=== PATIENT | female | born 1965 | race Caucasian/White ===

== ENCOUNTER 2024-07-20 03:37 | Inpatient (IN) | payer MEDICARE, OTHER ==
[~2024-07-20] VITALS: Ht 167.6 cm; Wt 68.0 kg
[~2024-07-20 03:37] MED LIST: ACYC400T19 PO; CLINDAMYCIN; CODE60TA PO; DICY10CA13 PO; DOCU-141 PO; FISH OIL PO; FLUTICASONE 50MCG; FOLIC ACID PO; GABA600T PO; HYDR2TAB4 PO; LINA290C PO; LORA10TA7 PO; MAGN400T8 PO; MULT1CAP34 PO; NALO25TA4 PO; PANT40TA49 PO; SENN-261 PO; TIZA4TAB5 PO; VITAMIN B PO; VITAMIN C PO; VITAMIN E PO; ZOVIRAX CREAM
[2024-07-20 04:12] LABS: BASOPHILS % (AUTO) 0.4 % (0.0-2.0); EOSINOPHILS # (AUTO) 0.1 K/uL (0.0-0.7); EOSINOPHILS % (AUTO) 1.8 % (0.0-7.0); HEMOGLOBIN 14.4 g/dL (10.9-14.3); LYMPHOCYTES % (AUTO) 37.9 % (20.5-51.5); MEAN CORPUSCULAR HEMOGLOBIN 31.9 uug (24.7-32.8); MEAN CORPUSCULAR HGB CONC 34 g/dL (32.3-35.6); MEAN CORPUSCULAR VOLUME 93.4 fL (75.5-95.3); MONOCYTES # (AUTO) 0.5 K/uL (0.1-1.30); MONOCYTES % (AUTO) 9.2 % (0.0-11.0); NEUTROPHILS # (AUTO) 2.7 K/uL (1.8-8.9); NEUTROPHILS % (AUTO) 50.7 % (38.5-71.5); PLATELET COUNT (AUTO) 371 K/uL (179-408); RED CELL DISTRIBUTION WIDTH 13.9 % (12.3-17.7); WHITE BLOOD COUNT (AUTO) 5.3 K/uL (3.8-11.8)
[2024-07-20] MEDS ORDERED: CHLO25CA22 PO (04:21)
[2024-07-20] MEDS ORDERED: FLUD0.1T PO (04:21)
[2024-07-20] MEDS ORDERED: DULO60CA45 PO (04:21)
[2024-07-20] MEDS ORDERED: DIAZ10TA4 PO (04:21)
[2024-07-20] MEDS ORDERED: HYDR8TAB PO (04:21)
[2024-07-20] MEDS ORDERED: OLAN5TAB3 IM (04:21)
[2024-07-20] MEDS ORDERED: NICO1PAT35 TP (04:21)
[2024-07-20] MEDS ORDERED: LORA10CA PO (04:21)
[2024-07-20] MEDS ORDERED: BISA10SU61 RC (04:21)
[2024-07-20] MEDS ORDERED: TOPI50TA24 PO (04:21)
[2024-07-20] MEDS ORDERED: RISP2TAB85 PO (04:21)
[2024-07-20] MEDS ORDERED: POLY250017 PO (04:21)
[2024-07-20] MEDS ORDERED: EPIN0.3P3 IM (04:21)
[2024-07-20] MEDS ORDERED: ONDA4TAB11 PO (04:21)
[2024-07-20] MEDS ORDERED: ACYC5CRE2 TP (04:21)
[2024-07-20] MEDS ORDERED: PROM6.256 PO (04:21)
[2024-07-20] MEDS ORDERED: MUPI22OI2 TP (04:21)
[2024-07-20] MEDS ORDERED: NICO1PAT44 TP (04:21)
[2024-07-20] MEDS ORDERED: PANT40TA49 PO (04:21)
[2024-07-20] MEDS ORDERED: TRAZ-257 PO (04:21)
[2024-07-20] MEDS ORDERED: OLAN10TA73 PO (04:21)
[2024-07-20] MEDS ORDERED: DOCU250C14 PO (04:21)
[2024-07-20] MEDS ORDERED: TOPI100T38 PO (04:21)
[2024-07-20] MEDS ORDERED: BUSP10TA3 PO (04:21)
[2024-07-20] MEDS ORDERED: BISA-79 PO (04:21)
[2024-07-20] MEDS ORDERED: ASCO500C18 PO (04:21)
[2024-07-20] MEDS ORDERED: DICL100G31 TP (04:21)
[2024-07-20] MEDS ORDERED: IBUP-1955 PO (04:21)
[2024-07-20] MEDS ORDERED: LORA-259 PO (04:21)
[2024-07-20] MEDS ORDERED: NALO4SPR BNOSTRILS (04:21)
[2024-07-20] MEDS ORDERED: DENO60DI SUBCUT (04:21)
[2024-07-20 04:23] LABS: DIFFERENTIAL COMMENT 1
[2024-07-20 04:28] LABS: CARBON DIOXIDE 23 mmol/L (21-32); CHLORIDE 107 mmol/L (98-107); CREATININE 0.9 mg/dL (0.6-1.3); GLUCOSE 100 mg/dL (74-106); POTASSIUM 3.9 mmol/L (3.5-5.1); SODIUM SERUM 144 mmol/L (136-145); UREA NITROGEN, BLOOD 14 mg/dL (7-18)
[2024-07-20 04:29] LABS: ETHANOL < 3 MG/DL (0-10)
[2024-07-20 04:39] LABS: ACETAMINOPHEN < 10.0 ug/mL (10-30); ALANINE AMINOTRANSFERASE 13 U/L (14-59); ALBUMIN 3.2 g/dL (3.4-5.0); ALKALINE PHOSPHATASE 135 U/L (50-136); ASPARTATE AMINOTRANSFERASE 19 U/L (15-37); BILIRUBIN,DIRECT 0.3 mg/dL (0.0-0.2); BILIRUBIN,TOTAL 0.9 mg/dL (0.2-1.0); CALCIUM 8.3 mg/dL (8.5-10.1); TOTAL PROTEIN, SERUM 7.3 g/dL (6.4-8.2)
[2024-07-20] MEDS ORDERED: ZOLPIDEM 5 MG TABLET PO PRN (07:00)
[2024-07-20] MEDS: BLOOD SUGAR DIAGNOSTIC 1 EACH STRIP VI ONE (07:00)
[2024-07-20 08:22] VITALS: BP 131/65; TEMP 98.4; O2SAT 98
[2024-07-20] MEDS: PAROXETINE HCL 10 MG TABLET PO SCH (09:00)
[2024-07-20] MEDS: DIVALPROEX SPRINKLE 125 MG CAP.SPRINK PO SCH (09:00)
[2024-07-20] MEDS ORDERED: MAGNESIUM HYDROXIDE 30 ML LIQUID UDC PO PRN (09:45)
[2024-07-20] MEDS: HYDROXYZINE PAMOATE 25 MG CAPSULE PO PRN (10:56)
[2024-07-20] MEDS ORDERED: NICOTINE 21 MG/24HR PATCH TD SCH (12:30)
[2024-07-20] MEDS ORDERED: CODEINE SULFATE PO SCH (13:00)
[2024-07-20] MEDS ORDERED: Medication Not On Formulary EA (Gabapentin (Neurontin) 600 MG) PO SCH (13:00)
[2024-07-20 16:41] VITALS: BP 123/64; TEMP 97.9; O2SAT 96
[2024-07-20] MEDS: DOCUSATE SODIUM 100 MG CAPSULE PO SCH (17:00)
[2024-07-20] MEDS ORDERED: VIT1TABL44 PO (19:04)
[2024-07-20 20:01] VITALS: BP 121/51; TEMP 98.1; O2SAT 97
[2024-07-20] MEDS: OLANZAPINE ZYDIS 5 MG TAB.RAPDIS PO SCH (20:36)
[2024-07-20] MEDS: ZOLPIDEM 5 MG TABLET PO PRN (21:55)
[2024-07-21 08:58] VITALS: BP 147/58; TEMP 97.8; O2SAT 96
[2024-07-21] MEDS ORDERED: ACYCLOVIR 400 MG TABLET PO SCH (09:00)
[2024-07-21] MEDS: ACYCLOVIR 200 MG CAPSULE PO SCH (09:00)
[2024-07-21] MEDS: FLUDROCORTISONE ACETATE 0.1 MG TABLET PO SCH (09:00)
[2024-07-21] MEDS ORDERED: NICOTINE 21 MG/24HR PATCH TD SCH (09:00)
[2024-07-21] MEDS ORDERED: Linaclotide (Linzess) 290 MCG) PO SCH (09:00)
[2024-07-21] MEDS: MIRALAX 17 GM POWD.PACK PO SCH (09:00)
[2024-07-21] MEDS: ENSURE ENLIVE (VAN) 240 ML LIQUID PO SCH (13:00)
[2024-07-21 15:49] VITALS: BP 148/90; TEMP 98; O2SAT 98
[2024-07-21] MEDS: OLANZAPINE ZYDIS 5 MG TAB.RAPDIS PO SCH (20:43)
[2024-07-21] MEDS: HYDROMORPHONE HCL 2 MG TABLET PO PRN (20:46)
[2024-07-22 07:48] VITALS: BP 111/44; TEMP 97.6; O2SAT 100
[2024-07-22] MEDS: OLANZAPINE 10 MG VIAL IM ONE (08:12)
[2024-07-22] MEDS: ONDANSETRON ODT 4 MG TAB.RAPDIS SL PRN (10:38)
[2024-07-22] MEDS: risperiDONE-M 0.5 MG TAB.RAPDIS PO SCH (12:08)
[2024-07-22] MEDS: busPIRone 5 MG TABLET PO SCH (12:08)
[2024-07-22 16:00] VITALS: BP 118/59; TEMP 97.8; O2SAT 97
[2024-07-22 20:00] VITALS: BP 117/79; TEMP 98.1
[2024-07-23 07:35] VITALS: BP 113/62; TEMP 97.6; O2SAT 98
[2024-07-23] MEDS ORDERED: ZOLPIDEM 5 MG TABLET PO PRN (08:00)
[2024-07-23] MEDS ORDERED: NICOTINE POLACRILEX 4 MG GUM-PK OF TEN BC PRN (08:15)
[2024-07-23] MEDS: DULOXETINE 60 MG CAPSULE.DR PO SCH (08:27)
[2024-07-23] MEDS ORDERED: NICOTINE POLACRILEX 2 MG GUM BC PRN (08:45)
[2024-07-23] MEDS: NICOTINE 21 MG/24HR PATCH TD SCH (12:30)
[2024-07-23] MEDS: HYDROXYZINE PAMOATE 25 MG CAPSULE PO PRN (13:43)
[2024-07-23 16:40] VITALS: BP 117/67; TEMP 97.7; O2SAT 98
[2024-07-23 20:39] VITALS: BP 126/74; TEMP 98.1; O2SAT 98
[2024-07-24 07:41] VITALS: BP 131/74; TEMP 97.2; O2SAT 98
[2024-07-24] MEDS: risperiDONE-M 0.5 MG TAB.RAPDIS PO SCH (09:30)
[2024-07-24 16:00] VITALS: BP 129/62; TEMP 97.8; O2SAT 98
[2024-07-24 20:00] VITALS: BP 113/64; TEMP 98.1; O2SAT 95
[2024-07-24] MEDS: TRAZODONE 100 MG TABLET PO SCH (23:11)
[2024-07-25 08:16] VITALS: BP 97/65; TEMP 98; O2SAT 96
[2024-07-25 16:47] VITALS: BP 134/108; TEMP 98; O2SAT 98
[2024-07-25 20:22] VITALS: BP 111/46; TEMP 98.4; O2SAT 94
[2024-07-25] MEDS: TRAZODONE 100 MG TABLET PO PRN (20:22)
[2024-07-26 08:22] VITALS: BP 103/72; TEMP 98.4; O2SAT 97
[2024-07-26 16:55] VITALS: BP 133/67; TEMP 97.9; O2SAT 100
[2024-07-26 20:01] VITALS: BP 140/70; TEMP 98.2; O2SAT 98
[2024-07-27 08:45] VITALS: BP 99/58; TEMP 97.8; O2SAT 96
[2024-07-27 16:32] VITALS: BP 133/76; TEMP 98.5; O2SAT 99
[2024-07-27 19:59] VITALS: BP 133/80; TEMP 98.1; O2SAT 95
[2024-07-28 08:14] VITALS: BP 113/60; TEMP 98; O2SAT 96
[2024-07-28 15:20] VITALS: BP 123/72; TEMP 98; O2SAT 96
[2024-07-28 20:00] VITALS: BP 118/89; TEMP 97.9; O2SAT 97
[2024-07-29 09:20] VITALS: BP 140/68; TEMP 98.2; O2SAT 100
== END 2024-07-29 11:15 | disposition home or self-care (01) | DRG 885 ==
LOC: ER 03:49 → GPS 06:41
PROVIDERS: ADMIT Psychiatry & Neurology Psychiatry; ATTEND Internal Medicine
DX: F31.5 Bipolar disorder, current episode depressed, severe, with psychotic features (principal); R45.851 Suicidal ideations; F11.20 Opioid dependence, uncomplicated; E83.51 Hypocalcemia; S10.91XD Abrasion of unspecified part of neck, subsequent encounter; X78.1XXD Intentional self-harm by knife, subsequent encounter; F17.210 Nicotine dependence, cigarettes, uncomplicated; M79.7 Fibromyalgia; F43.10 Post-traumatic stress disorder, unspecified; E07.9 Disorder of thyroid, unspecified; F10.20 Alcohol dependence, uncomplicated; Y90.0 Blood alcohol level of less than 20 mg/100 ml
CPT/HCPCS: 36415; 83605; 84443; 84481; 85025; A4663; G0480; J2358; Q0162